=== PATIENT | male | born 1965 | race African-American/Black ===

== ENCOUNTER 2023-09-02 12:15 | Emergency (ER) | payer MEDICAID ==
[~2023-09-02] VITALS: Ht 170.2 cm; Wt 81.0 kg
[2023-09-02 12:17] VITALS: BP 140/89; PULSE 89; RESP 20; TEMP 98; O2SAT 99
[2023-09-02] MEDS ORDERED: PERM60CR4 TP (12:43)
== END 2023-09-02 13:32 | disposition home or self-care (01) ==
LOC: ER 12:15
DX: B86 Scabies (principal); Z98.890 Other specified postprocedural states
CPT/HCPCS: 99282